=== PATIENT | female | born 1975 | race Caucasian/White ===

== ENCOUNTER 2017-02-20 20:24 | Emergency (ER) | payer BC ==
[~2017-02-20] VITALS: Ht 172.7 cm; Wt 63.6 kg
[2017-02-20 20:34] VITALS: TEMP 97.9
[2017-02-20 21:18] LABS: BASO # 0.1 (0.0-0.2); BASO % 0.6 % (0.0-2.0); EOS # 0.1 (0.0-0.7); EOS % 0.6 % (0-4.0); GRAN % 62.3 % (42.2-75.2); HEMATOCRIT 39.3 % (37.0-47.0); HEMOGLOBIN 14.3 g/dl (12.5-16.0); LYMPH # 3.9 (1.2-3.4); MEAN CELL VOLUME 98 fl (80.0-100.0); MEAN CORPUSCULAR HEMOGLOBIN 36 pg (27.0-31.0); MEAN CORPUSCULAR HGB CONC 36 g/dl (33.0-37.0); MEAN PLATELET VOLUME 8.2 fl (7.4-10.4); MONO # 0.8 (0.1-0.6); MONO % 6.2 % (1.7-9.3); PLATELET COUNT 248 K/mm3 (130-400); RED BLOOD COUNT 4.02 M/mm3 (4.10-5.30); REDCELL DISTRIBUTION WIDTH-CV 10.8 % (11.5-14.5); WHITE BLOOD COUNT 12.8 K/mm3 (4.8-10.8)
[2017-02-20] MEDS ORDERED: ULTRAM 50MG TAB50 MG PO (21:33)
[2017-02-20] MEDS ORDERED: ZOFRAN8 MG PO (21:33)
[2017-02-20 21:36] LABS: ADJUSTED CALCIUM 8.2 mg/dL (8.4-10.2); ALBUMIN 4.9 gm/dL (3.5-5.0); BILIRUBIN,TOTAL 0.7 mg/dL (0.0-1.0); CALCIUM 8.9 mg/dL (8.4-10.2); CREATININE, serum 0.56 mg/dL (0.52-1.25); POTASSIUM 3.5 mmol/L (3.4-5.0); TOTAL PROTEIN 7.8 gm/dL (6.4-8.2)
[2017-02-20 22:30] VITALS: BP 129/79; PULSE 88
== END 2017-02-20 22:34 | disposition home or self-care (01) ==
LOC: COL.ER 20:24
PROVIDERS: Emergency Medicine
DX: E86.9 Volume depletion, unspecified (principal); R10.13 Epigastric pain; R19.7 Diarrhea, unspecified; R11.2 Nausea with vomiting, unspecified; Z85.6 Personal history of leukemia; Z88.0 Allergy status to penicillin
CPT/HCPCS: J1170; J1885; J2405; J2765; J7030

== ENCOUNTER 2017-05-17 21:45 | Emergency (ER) | payer BC ==
[~2017-05-17] VITALS: Ht 172.7 cm; Wt 59.1 kg
[~2017-05-17 21:45] MED LIST: ULTRAM 50MG TAB50 MG PO; ZOFRAN8 MG PO
[2017-05-17 21:50] VITALS: BP 124/85; TEMP 98.5
[2017-05-17] MEDS ORDERED: XANAX .25M0.25 MG/TA PO (21:54)
[2017-05-17] MEDS ORDERED: LOMOTIL 0.025 M1 TAB (21:54)
[2017-05-17 23:09] LABS: BASO # 0.1 (0.0-0.2); BASO % 1.5 % (0.0-2.0); EOS # 0.1 (0.0-0.7); GRAN # 4.5 (1.4-6.5); GRAN % 50.4 % (42.2-75.2); HEMOGLOBIN 15.9 g/dl (12.5-16.0); LYMPH # 3.6 (1.2-3.4); LYMPH % 40.3 % (20.0-51.0); MEAN CELL VOLUME 100 fl (80.0-100.0); MEAN CORPUSCULAR HEMOGLOBIN 36 pg (27.0-31.0); MEAN CORPUSCULAR HGB CONC 36 g/dl (33.0-37.0); MEAN PLATELET VOLUME 8.5 fl (7.4-10.4); MONO # 0.6 (0.1-0.6); MONO % 6.5 % (1.7-9.3); PLATELET COUNT 302 K/mm3 (130-400); REDCELL DISTRIBUTION WIDTH-CV 11.9 % (11.5-14.5); WHITE BLOOD COUNT 8.9 K/mm3 (4.8-10.8)
[2017-05-17 23:17] LABS: PH 5 (5-8); URINE APPEARANCE Cloudy; URINE BACTERIA Rare /hpf; URINE BILIRUBIN Negative (NEGATIVE); URINE BLOOD 2+ (NEGATIVE); URINE COLOR Yellow; URINE GLUCOSE Negative (NEGATIVE); URINE KETONE 1+ (NEGATIVE); URINE UROBILINOGEN Negative (NEGATIVE)
[2017-05-17 23:23] LABS: ADJUSTED CALCIUM 8.2 mg/dL (8.4-10.2); ALANINE AMINOTRANSFERASE 61 U/L (9-52); ALBUMIN 5.4 gm/dL (3.5-5.0); ALKALINE PHOSPHATASE 77 U/L (50-136); ANION GAP 24 mmol/L (7-16); BILIRUBIN,TOTAL 0.6 mg/dL (0.0-1.0); BLOOD UREA NITROGEN 7 mg/dL (7-17); CALCIUM 9.3 mg/dL (8.4-10.2); CARBON DIOXIDE 18 mmol/L (22-30); CHLORIDE 104 mmol/L (98-107); CREATININE, serum 0.63 mg/dL (0.52-1.25); GLUCOSE 65 mg/dL (74-106); LIPASE 41 U/L (23-300); POTASSIUM 3.6 mmol/L (3.4-5.0); SODIUM 146 mmol/L (137-145); TOTAL PROTEIN 8.9 gm/dL (6.4-8.2)
[2017-05-17 23:27] LABS: C-REACTIVE PROTEIN < 0.5 mg/dL (0.0-0.9)
[2017-05-17 23:33] LABS: TROPONIN-I < 0.012 ng/mL (0.000-0.034)
[2017-05-18] MEDS ORDERED: PHENERGAN25 MG RC (00:13)
[2017-05-18] MEDS ORDERED: ZOFRAN 4MG T4 MG/TAB PO (00:13)
[2017-05-18] MEDS ORDERED: PROTONIX 40MG T40 MG PO (00:13)
[2017-05-18 00:52] VITALS: PULSE 68
== END 2017-05-18 00:50 | disposition home or self-care (01) ==
LOC: COL.ER 21:45
PROVIDERS: Emergency Medicine
DX: E03.9 Hypothyroidism, unspecified (principal); R10.84 Generalized abdominal pain; R11.10 Vomiting, unspecified; R19.7 Diarrhea, unspecified; F41.9 Anxiety disorder, unspecified
CPT/HCPCS: J2405; J2550; J7030